=== PATIENT | male | born 1940 | race Caucasian/White ===

== ENCOUNTER 2020-11-22 17:41 | Inpatient (IN) | payer BC, MEDICARE ==
[~2020-11-22] VITALS: Ht 188 cm; Wt 96.4 kg
[2020-11-22] MEDS ORDERED: normal saline 1000ML IV soln IV ONE (17:55)
--- NOTE | 2020-11-22 18:17 | NUR ---
Pt. reports falling 5 days prior, striking back, no head strike, no LOC.
[2020-11-22 18:53] LABS: BASOPHILS % (AUTO) 0.5 % (0-1); EOSINOPHILS % (AUTO) 0.3 % (0-6); HEMATOCRIT 32.4 % (42.0-52.0); LYMPHOCYTES # (AUTO) 0.7 X10'3 (1.1-4.8); LYMPHOCYTES % (AUTO) 7.8 % (21-51); MEAN CORPUSCULAR HEMOGLOBIN 23.2 PG (27.0-31.0); MEAN CORPUSCULAR HGB CONC 30.9 g/dL (33.0-36.5); MEAN CORPUSCULAR VOLUME 75.2 FL (78-98); MEAN PLATELET VOLUME 7.1 FL (7.4-10.4); MONOCYTES # (AUTO) 0.8 X10'3 (0-0.9); MONOCYTES % (AUTO) 8.5 % (2-12); NEUTROPHILS # (AUTO) 7.5 X10'3 (1.8-7.7); NEUTROPHILS % (AUTO) 82.9 % (42-75); PLATELET COUNT 413 X10'3 (140-440); RED BLOOD COUNT 4.31 X10'6 (4.70-6.10); RED CELL DISTRIBUTION WIDTH 19.8 % (11.5-14.5); WHITE BLOOD COUNT 9.1 X10'3 (4.5-11.0)
[2020-11-22 19:07] LABS: ALANINE AMINOTRANSFERASE 15 U/L (12-78); ALBUMIN 3.7 G/DL (3.4-5.0); ALBUMIN/GLOBULIN RATIO 0.9 (1.1-1.5); ALKALINE PHOSPHATASE 89 IU/L (46-116); ANION GAP 11 (8-16); ASPARTATE AMINO TRANSFERASE 18 U/L (10-37); BILIRUBIN,TOTAL 0.7 MG/DL (0.1-1.0); BLOOD UREA NITROGEN 24 MG/DL (7-18); BUN/CREATININE RATIO 14.4 (5.4-32.0); CALCIUM 9.3 MG/DL (8.5-10.1); CHLORIDE 105 MMOL/L (99-107); CREATININE 1.67 MG/DL (0.60-1.10); GLUCOSE 155 MG/DL (70-104); POTASSIUM 4.1 MMOL/L (3.5-5.1); SODIUM 140 MMOL/L (135-145); TOTAL CARBON DIOXIDE 24.3 MMOL/L (24-32); TOTAL PROTEIN 7.7 G/DL (6.4-8.2); eGFR 40 ML/MIN
[2020-11-22 19:09] LABS: MAGNESIUM 1.8 MG/DL (1.5-2.4)
[2020-11-22] MEDS ORDERED: temazepam 15mg capsule PO PRN (21:00)
[2020-11-22 21:10] LABS: CLARITY,URINE CLOUDY (Clear); COLOR,URINE YELLOW (Yellow); UA COLLECTION TYPE URINAL
[2020-11-22 21:11] LABS: GLUCOSE, URINE NEGATIVE (Neg); KETONES,URINE 15 mg/dl (Neg); OCCULT BLOOD,URINE SMALL (Neg); PROTEIN,URINE 100 mg/dl (Neg)
[2020-11-22 21:12] LABS: LEUKOCYTE ESTERASE ,URINE TRACE (Neg); NITRITES, URINE POSITIVE (Neg); UROBILINOGEN,URINE 0.2 E.U/dL (0.2-1.0)
[2020-11-22 21:20] LABS: WBC,URINE 50-100 /HPF (0-4)
[2020-11-22 21:21] LABS: BACTERIA,URINE 3+ /HPF (Neg); MUCUS STRANDS FEW /LPF (Neg); SQUAMOUS EPITHELIAL CELL,UR FEW /LPF (FEW)
[2020-11-22] MEDS ORDERED: magnesium Cl slow-release 64mg tablet PO PRN (22:05)
[2020-11-22] MEDS ORDERED: mag hydrox/Alum hydrox/simeth 30ml oral suspension PO PRN (22:05)
[2020-11-22] MEDS ORDERED: ondansetron/PF 4mg/2ml inj IV PRN (22:05)
[2020-11-22] MEDS ORDERED: potassium Cl 20 mEq SR tablet PO PRN ×2 (22:05)
[2020-11-22] MEDS ORDERED: acetaminophen 325mg tablet PO PRN ×2 (22:05)
[2020-11-22] MEDS ORDERED: magnesium 2GM in 50ml NS 50 ML IV PRN (22:05)
[2020-11-22] MEDS ORDERED: magnesium 4gm in 100ml NS 100 ML IV PRN (22:05)
[2020-11-22] MEDS ORDERED: magnesium hydroxide 30ml (MOM) UD suspension PO PRN (22:05)
[2020-11-22] MEDS ORDERED: potassium Cl 40MEQ/1/2NS 520ml 520 ML IV PRN ×2 (22:05)
[2020-11-22] MEDS ORDERED: MESSAGE TO PHARMACY PO ONE (22:10)
[2020-11-22] MEDS ORDERED: dextrose 50%-water 50ml dispensing syringe IV PRN ×2 (22:10)
[2020-11-22] MEDS ORDERED: dextrose ORAL solution 15 GM/59 ML bottle PO PRN ×2 (22:10)
[2020-11-22] MEDS ORDERED: glucagon, human recombinant 1mg kit SUBCUT PRN (22:10)
[2020-11-22 22:18] LABS: PLATELET ESTIMATE NORMAL
[2020-11-22 22:20] LABS: ANISOCYTOSIS 2+; HYPOCHROMASIA 1+; MICROCYTOSIS 1+
[2020-11-22 23:02] LABS: HEMOGLOBIN A1C 6.1 % (4.5-6.2)
--- NOTE | 2020-11-22 23:20 | NUR ---
PT HAD AN EPISODE OF EMESIS COMPOSED OF PARTIALLY COMPOSED DINNER AND A SODA HIS HAD BROUGHT HIM. HE REPORTS FEELING WELL NOW. AIRWAY PATENT. HE IS ALERT AND ORIENTEDX4. PT WAS CLEANED UP, CHANGED INTO A NEW GOWN, AND LINENS HAVE BEEN CHANGED. PT WAS STARTED ON ABS AND MAINTENANCE FLUIDS. BED LOW TO GROUND AND LOCKED INTO POSITION.
[2020-11-22] MEDS: CefTRIAXone 2gm/D5W 50ml BAG 50 ML IV SCH (23:25)
[2020-11-22] MEDS: normal saline 1000ml 1,000 ML IV SCH (23:27)
[2020-11-22] MEDS ORDERED: LISI40TA13 PO (23:39)
[2020-11-22] MEDS ORDERED: GLIM4TAB7 PO (23:39)
[2020-11-22] MEDS ORDERED: BRIN8DRO RIGHTEYE (23:39)
[2020-11-22] MEDS ORDERED: METO-395 PO (23:39)
[2020-11-22] MEDS ORDERED: LAN0.125T PO (23:39)
[2020-11-22] MEDS ORDERED: PIOG30TA71 PO (23:41)
[2020-11-22] MEDS ORDERED: RIVA20TA PO (23:41)
[2020-11-22] MEDS ORDERED: ATOR10TA70 PO (23:43)
[2020-11-22] MEDS ORDERED: METF-950 PO (23:43)
[2020-11-22] MEDS ORDERED: BIMA2.5D EACHEYE (23:45)
[2020-11-22] MEDS ORDERED: ZOLP5TAB2 PO (23:45)
[2020-11-23 07:18] LABS: ALANINE AMINOTRANSFERASE 22 U/L (12-78); ALBUMIN 3.5 G/DL (3.4-5.0); ALBUMIN/GLOBULIN RATIO 0.9 (1.1-1.5); ALKALINE PHOSPHATASE 86 IU/L (46-116); ANION GAP 11 (8-16); ASPARTATE AMINO TRANSFERASE 21 U/L (10-37); BILIRUBIN,TOTAL 0.6 MG/DL (0.1-1.0); BLOOD UREA NITROGEN 20 MG/DL (7-18); BUN/CREATININE RATIO 16.5 (5.4-32.0); CALCIUM 9.3 MG/DL (8.5-10.1); CHLORIDE 105 MMOL/L (99-107); CREATININE 1.21 MG/DL (0.60-1.10); GLUCOSE 180 MG/DL (70-104); MAGNESIUM 1.9 MG/DL (1.5-2.4); POTASSIUM 3.7 MMOL/L (3.5-5.1); SODIUM 140 MMOL/L (135-145); TOTAL CARBON DIOXIDE 24.1 MMOL/L (24-32); TOTAL PROTEIN 7.2 G/DL (6.4-8.2); eGFR 58 ML/MIN
[2020-11-23] MEDS: K and/or MAG REPLACEMENT MC SCH ×2 (07:49→22:53)
[2020-11-23] MEDS: CefTRIAXone 2gm/D5W 50ml BAG 50 ML IV SCH (07:58)
[2020-11-23] MEDS: normal saline 1000ml 1,000 ML IV SCH ×2 (07:58→17:23)
[2020-11-23] MEDS ORDERED: heparin, porcine 5000 units/ml vial SQ SCH (08:00)
[2020-11-23] MEDS ORDERED: metFORMIN 500mg tablet PO SCH (08:30)
[2020-11-23] MEDS ORDERED: pioglitazone 15mg tablet PO SCH (08:32)
--- NOTE | 2020-11-23 08:55 | NUR ---
PAGED DR GARCIA REGARDING PT ORAL HYPERGYCEMIC AGENT ASKED IF HE WANT US TO ADMIN TO PT PT IS ALREADY ON HUMOLOG AND LANTUS , PER MD HOLD THE ORAL HYPERGYLCEMIC MEDS.WILL FOLLOW THE ORDERS.
[2020-11-23] MEDS: metoprolol succinate 25mg (24-HOUR) SR. Tablet PO SCH (09:03)
[2020-11-23] MEDS: atorvastatin 10mg tablet PO SCH (09:03)
[2020-11-23] MEDS: digoxin 125mcg (0.125mg) tablet PO SCH (09:03)
[2020-11-23] MEDS: lisinopril 20mg tablet PO SCH (09:03)
[2020-11-23 10:46] LABS: BASOPHILS % (AUTO) 0.5 % (0-1); EOSINOPHILS % (AUTO) 0.3 % (0-6); HEMATOCRIT 32.6 % (42.0-52.0); HEMOGLOBIN 10.1 g/dl (14.0-17.9); LYMPHOCYTES # (AUTO) 0.8 X10'3 (1.1-4.8); LYMPHOCYTES % (AUTO) 7.5 % (21-51); MEAN CORPUSCULAR VOLUME 74.1 FL (78-98); MONOCYTES # (AUTO) 0.7 X10'3 (0-0.9); MONOCYTES % (AUTO) 6.7 % (2-12); NEUTROPHILS # (AUTO) 8.6 X10'3 (1.8-7.7); PLATELET COUNT 416 X10'3 (140-440); RED BLOOD COUNT 4.39 X10'6 (4.70-6.10); RED CELL DISTRIBUTION WIDTH 20.2 % (11.5-14.5); WHITE BLOOD COUNT 10.2 X10'3 (4.5-11.0)
[2020-11-23 11:49] LABS: ANISOCYTOSIS 3+; MICROCYTOSIS 1+; PLATELET ESTIMATE NORMAL
[2020-11-23 11:50] LABS: ELLIPTOCYTES FEW; TARGET CELLS FEW
[2020-11-23] MEDS: BRIMONID TART RIGHTEYE SCH ×2 (13:00→22:52)
[2020-11-23] MEDS: BRINZOLAMIDE RIGHTEYE SCH ×2 (13:00→22:52)
--- NOTE | 2020-11-23 13:15 | NUR ---
talked to family and gave update
--- NOTE | 2020-11-23 14:00 | NUR ---
pt refused to take insulin for blood sugar .
--- NOTE | 2020-11-23 15:10 | NUR ---
dr finley at bedside.
[2020-11-23] MEDS: rivaroxaban 20mg tablet PO SCH (17:22)
[2020-11-23] MEDS: latanoprost 0.005% 2.5ml ophthalmic drops EACHEYE SCH (21:30)
[2020-11-23 21:35] VITALS: BP 164/94
--- NOTE | 2020-11-23 21:35 | NUR ---
PATIENT ADMITTED TO [facility] FROM ER FOR WEAKNESS, FALLS AT HOME, DM TYPE 2 AND HYPERLIPIDEMIA. PLACED COMFORTABLE IN BED. VITAL SIGNS TAKEN AND RECORDED.
[2020-11-23] MEDS: lactobacillus rhamnosus 10,000 MMU CELLS/CAPSULE PO SCH (22:51)
[2020-11-23] MEDS: insulin glargine (Lantus) pen - multi-dose SQ SCH (22:52)
[2020-11-24 04:00] VITALS: BP 146/93
[2020-11-24] MEDS: normal saline 1000ml 1,000 ML IV SCH (04:05)
--- NOTE | 2020-11-24 06:15 | NUR ---
Received RPT from JOSE EDUARDO Golden
--- NOTE | 2020-11-24 06:29 | NUR ---
Problems reprioritized. Patient report given, questions answered & plan of care reviewed with TENISHA WHITT.
[2020-11-24] MEDS: K and/or MAG REPLACEMENT MC SCH ×2 (08:00→20:00)
[2020-11-24] MEDS: BRINZOLAMIDE RIGHTEYE SCH ×2 (08:00→13:00)
[2020-11-24] MEDS: BRIMONID TART RIGHTEYE SCH ×2 (08:00→13:00)
[2020-11-24] MEDS: lactobacillus rhamnosus 10,000 MMU CELLS/CAPSULE PO SCH ×2 (08:33→23:28)
[2020-11-24] MEDS: atorvastatin 10mg tablet PO SCH (08:34)
[2020-11-24] MEDS: metoprolol succinate 25mg (24-HOUR) SR. Tablet PO SCH (08:35)
[2020-11-24] MEDS: lisinopril 20mg tablet PO SCH (08:36)
[2020-11-24] MEDS: latanoprost 0.005% 2.5ml ophthalmic drops EACHEYE SCH (08:39)
[2020-11-24] MEDS: CefTRIAXone 2gm/D5W 50ml BAG 50 ML IV SCH (09:01)
[2020-11-24 09:38] LABS: BASOPHILS # (AUTO) 0.1 X10'3 (0-0.2); BASOPHILS % (AUTO) 0.5 % (0-1); EOSINOPHILS # (AUTO) 0.1 X10'3 (0-0.9); EOSINOPHILS % (AUTO) 0.4 % (0-6); HEMATOCRIT 33.3 % (42.0-52.0); HEMOGLOBIN 10.5 g/dl (14.0-17.9); LYMPHOCYTES # (AUTO) 1.4 X10'3 (1.1-4.8); LYMPHOCYTES % (AUTO) 11.4 % (21-51); MEAN CORPUSCULAR HEMOGLOBIN 23.3 PG (27.0-31.0); MEAN CORPUSCULAR HGB CONC 31.5 g/dL (33.0-36.5); MEAN CORPUSCULAR VOLUME 73.9 FL (78-98); MONOCYTES # (AUTO) 1.1 X10'3 (0-0.9); MONOCYTES % (AUTO) 8.6 % (2-12); NEUTROPHILS # (AUTO) 9.8 X10'3 (1.8-7.7); NEUTROPHILS % (AUTO) 79.1 % (42-75); PLATELET COUNT 441 X10'3 (140-440); RED CELL DISTRIBUTION WIDTH 19.7 % (11.5-14.5); WHITE BLOOD COUNT 12.3 X10'3 (4.5-11.0)
[2020-11-24 09:45] LABS: ALANINE AMINOTRANSFERASE 25 U/L (12-78); ALBUMIN 3.5 G/DL (3.4-5.0); ALBUMIN/GLOBULIN RATIO 0.9 (1.1-1.5); ALKALINE PHOSPHATASE 89 IU/L (46-116); ANION GAP 9 (8-16); ASPARTATE AMINO TRANSFERASE 19 U/L (10-37); BILIRUBIN,TOTAL 0.6 MG/DL (0.1-1.0); BLOOD UREA NITROGEN 16 MG/DL (7-18); BUN/CREATININE RATIO 13.3 (5.4-32.0); CHLORIDE 107 MMOL/L (99-107); GLUCOSE 138 MG/DL (70-104); MAGNESIUM 1.8 MG/DL (1.5-2.4); POTASSIUM 3.7 MMOL/L (3.5-5.1); SODIUM 141 MMOL/L (135-145); TOTAL CARBON DIOXIDE 25.4 MMOL/L (24-32); TOTAL PROTEIN 7.5 G/DL (6.4-8.2); eGFR 58 ML/MIN
[2020-11-24] MEDS: digoxin 125mcg (0.125mg) tablet PO SCH (09:46)
--- NOTE | 2020-11-24 09:50 | NUR ---
Digoxin not available from Pharmacy until this time. Administered medication and continue to monitor pt.
[2020-11-24 11:00] VITALS: BP 140/85
--- NOTE | 2020-11-24 11:54 | NUR ---
Gave RPT to JOSE EDUARDO Walker
--- NOTE | 2020-11-24 13:10 | NUR ---
While pt getting out of recliner to return to bed, stumbled forward striking his head in end corner of bed. Pt reports he did not hit the floor. No injury noted, no discomfort reported. Pt hypertensive on VS 173/103 HR 114. Student was in room and assisted pt back to bed and notified Nursing. Bed alarm on but there was no Tabs placed by PT.
--- NOTE | 2020-11-24 13:59 | NUR ---
BP recheck after pt settled for a while 150/98 HR 107-123 afib hx. continues to deny pain.
[2020-11-24] MEDS: rivaroxaban 20mg tablet PO SCH (17:43)
--- NOTE | 2020-11-24 18:17 | NUR ---
Problems reprioritized. Patient report given, questions answered & plan of care reviewed with JOSE EDUARDO Oshea.
[2020-11-24] MEDS: insulin glargine (Lantus) pen - multi-dose SQ SCH (21:00)
[2020-11-24] MEDS: zolpidem 5mg tablet PO PRN ×2 (23:28→23:31)
--- NOTE | 2020-11-25 06:04 | NUR ---
End of shift note. patient refused accucheck and vital signs for 1999. Pt. was a bit irritable. Patient is incontinent of urine. This nurse offered to change his bottoms. Pt. declined, and stated he would wait for his daughter to bring his clothes.
[2020-11-25 06:20] LABS: BASOPHILS % (AUTO) 0.4 % (0-1); EOSINOPHILS # (AUTO) 0.1 X10'3 (0-0.9); EOSINOPHILS % (AUTO) 1.2 % (0-6); HEMATOCRIT 33.9 % (42.0-52.0); HEMOGLOBIN 10.3 g/dl (14.0-17.9); LYMPHOCYTES # (AUTO) 1.4 X10'3 (1.1-4.8); LYMPHOCYTES % (AUTO) 14.1 % (21-51); MEAN CORPUSCULAR HEMOGLOBIN 22.9 PG (27.0-31.0); MEAN CORPUSCULAR HGB CONC 30.5 g/dL (33.0-36.5); MEAN CORPUSCULAR VOLUME 75.2 FL (78-98); MEAN PLATELET VOLUME 7.1 FL (7.4-10.4); MONOCYTES % (AUTO) 9.8 % (2-12); NEUTROPHILS # (AUTO) 7.3 X10'3 (1.8-7.7); NEUTROPHILS % (AUTO) 74.5 % (42-75); PLATELET COUNT 383 X10'3 (140-440); RED BLOOD COUNT 4.51 X10'6 (4.70-6.10); RED CELL DISTRIBUTION WIDTH 19.9 % (11.5-14.5); WHITE BLOOD COUNT 9.8 X10'3 (4.5-11.0)
[2020-11-25 06:44] LABS: ALANINE AMINOTRANSFERASE 17 U/L (12-78); ALBUMIN 3.4 G/DL (3.4-5.0); ALBUMIN/GLOBULIN RATIO 0.9 (1.1-1.5); ALKALINE PHOSPHATASE 86 IU/L (46-116); ANION GAP 13 (8-16); ASPARTATE AMINO TRANSFERASE 13 U/L (10-37); BILIRUBIN,TOTAL 0.5 MG/DL (0.1-1.0); BLOOD UREA NITROGEN 15 MG/DL (7-18); BUN/CREATININE RATIO 12.6 (5.4-32.0); CALCIUM 9.3 MG/DL (8.5-10.1); CHLORIDE 108 MMOL/L (99-107); CREATININE 1.19 MG/DL (0.60-1.10); GLUCOSE 114 MG/DL (70-104); MAGNESIUM 1.9 MG/DL (1.5-2.4); POTASSIUM 3.5 MMOL/L (3.5-5.1); SODIUM 144 MMOL/L (135-145); TOTAL CARBON DIOXIDE 23.3 MMOL/L (24-32); TOTAL PROTEIN 7.2 G/DL (6.4-8.2); eGFR 59 ML/MIN
[2020-11-25 08:00] VITALS: BP 159/114
[2020-11-25] MEDS: BRIMONID TART RIGHTEYE SCH ×3 (08:00→21:00)
[2020-11-25] MEDS: BRINZOLAMIDE RIGHTEYE SCH ×3 (08:00→21:00)
[2020-11-25] MEDS: atorvastatin 10mg tablet PO SCH (08:00)
[2020-11-25] MEDS: K and/or MAG REPLACEMENT MC SCH ×2 (08:29→20:00)
[2020-11-25] MEDS: CefTRIAXone 2gm/D5W 50ml BAG 50 ML IV SCH (09:28)
[2020-11-25] MEDS: metoprolol succinate 25mg (24-HOUR) SR. Tablet PO SCH (09:28)
[2020-11-25] MEDS: lactobacillus rhamnosus 10,000 MMU CELLS/CAPSULE PO SCH ×2 (09:28→21:40)
[2020-11-25] MEDS: digoxin 125mcg (0.125mg) tablet PO SCH (09:29)
[2020-11-25] MEDS: lisinopril 20mg tablet PO SCH (09:29)
--- NOTE | 2020-11-25 11:41 | NUR ---
DM consult: Pt with T2DM, well controlled with A1c 6.1%. DM education not warranted at this time. Noted per physical assessment pt gargles after coughing or swallowing. Recommend BSS with ST to monitor need for texture modification and appropriateness for PO diet. Pt currently on a CHO controlled diet with mostly 0% PO intake throughout LOS. Recommend diet advancement to regular in view of current A1c and geriatric age IF pt able to tolerate PO intake. Will continue to follow closely and make recommendations as appropriate pending BSS. Addendum: 11/25/20 at [address] Amended: Links added.
[2020-11-25 12:00] VITALS: BP 152/101
[2020-11-25] MEDS: rivaroxaban 20mg tablet PO SCH (17:27)
[2020-11-25] MEDS: insulin glargine (Lantus) pen - multi-dose SQ SCH (21:00)
[2020-11-25] MEDS: latanoprost 0.005% 2.5ml ophthalmic drops EACHEYE SCH (21:29)
[2020-11-26 06:20] LABS: BASOPHILS % (AUTO) 0.5 % (0-1); EOSINOPHILS # (AUTO) 0.1 X10'3 (0-0.9); EOSINOPHILS % (AUTO) 1.4 % (0-6); HEMATOCRIT 32.8 % (42.0-52.0); HEMOGLOBIN 10.1 g/dl (14.0-17.9); LYMPHOCYTES # (AUTO) 1.1 X10'3 (1.1-4.8); MEAN CORPUSCULAR HGB CONC 30.8 g/dL (33.0-36.5); MEAN CORPUSCULAR VOLUME 74.7 FL (78-98); MEAN PLATELET VOLUME 7.1 FL (7.4-10.4); MONOCYTES # (AUTO) 0.9 X10'3 (0-0.9); MONOCYTES % (AUTO) 10.5 % (2-12); NEUTROPHILS # (AUTO) 6.4 X10'3 (1.8-7.7); NEUTROPHILS % (AUTO) 74.6 % (42-75); PLATELET COUNT 383 X10'3 (140-440); RED BLOOD COUNT 4.39 X10'6 (4.70-6.10); RED CELL DISTRIBUTION WIDTH 19.4 % (11.5-14.5); WHITE BLOOD COUNT 8.6 X10'3 (4.5-11.0)
[2020-11-26 06:40] LABS: ALANINE AMINOTRANSFERASE 22 U/L (12-78); ALBUMIN 3.3 G/DL (3.4-5.0); ALBUMIN/GLOBULIN RATIO 0.8 (1.1-1.5); ALKALINE PHOSPHATASE 84 IU/L (46-116); ANION GAP 11 (8-16); ASPARTATE AMINO TRANSFERASE 19 U/L (10-37); BILIRUBIN,TOTAL 0.5 MG/DL (0.1-1.0); BLOOD UREA NITROGEN 15 MG/DL (7-18); BUN/CREATININE RATIO 12.7 (5.4-32.0); CHLORIDE 105 MMOL/L (99-107); CREATININE 1.18 MG/DL (0.60-1.10); GLUCOSE 105 MG/DL (70-104); MAGNESIUM 1.9 MG/DL (1.5-2.4); POTASSIUM 3.4 MMOL/L (3.5-5.1); SODIUM 141 MMOL/L (135-145); TOTAL CARBON DIOXIDE 25.3 MMOL/L (24-32); TOTAL PROTEIN 7.2 G/DL (6.4-8.2); eGFR 59 ML/MIN
[2020-11-26 07:00] VITALS: BP 151/96
[2020-11-26] MEDS: lactobacillus rhamnosus 10,000 MMU CELLS/CAPSULE PO SCH ×2 (07:33→19:56)
[2020-11-26] MEDS: metoprolol succinate 25mg (24-HOUR) SR. Tablet PO SCH (07:33)
[2020-11-26] MEDS: digoxin 125mcg (0.125mg) tablet PO SCH (07:33)
[2020-11-26] MEDS: lisinopril 20mg tablet PO SCH (07:33)
[2020-11-26] MEDS: atorvastatin 10mg tablet PO SCH (07:33)
[2020-11-26] MEDS: BRIMONID TART RIGHTEYE SCH ×3 (07:34→21:00)
[2020-11-26] MEDS: BRINZOLAMIDE RIGHTEYE SCH ×3 (07:34→21:00)
[2020-11-26] MEDS: CefTRIAXone 2gm/D5W 50ml BAG 50 ML IV SCH (07:34)
[2020-11-26] MEDS: K and/or MAG REPLACEMENT MC SCH ×2 (07:35→20:00)
--- NOTE | 2020-11-26 15:22 | NUR ---
Initial: Pt admit for UTI with recent falls and generalized weakness. S/p BSS with ST recs regular texture modification as pt swallowing well with food and liquids and reports he has been coughing up some phlegm but is not related to swallowing difficulty per ST note. Pt initially with 0% PO intake however up to 50% PO intake at two most recent meals. Noted pt states he's not hungry per monotypist. TC to RN with recommendation for diet liberalization to regular with MD approval in view of A1c 6.1%, poor PO intake, and geriatric age. Diet has been advanced, pending first meal since advancement. LBM 11/21, with PRN bowel care available though not documented to be given. D/w dietary to send prune juice with next meal to assist with bowel regularity. Will continue to follow and monitor need for further nutrition intervention pending additional trends in PO intake with diet advancement. Recommendations: 1) Continue regular diet 2) Monitor need for ONS 3) Routine bowel care 4) Scaled weight this admit; weekly scaled weights thereafter Addendum: 11/26/20 at [address] Amended: Links added.
[2020-11-26] MEDS: rivaroxaban 20mg tablet PO SCH (17:39)
--- NOTE | 2020-11-26 18:00 | NUR ---
Patient in room [facility] I have received report from Shubham and had the opportunity to ask questions and assume patient care.
[2020-11-26] MEDS: zolpidem 5mg tablet PO PRN (19:56)
[2020-11-26 20:00] VITALS: BP 148/90
[2020-11-26] MEDS: latanoprost 0.005% 2.5ml ophthalmic drops EACHEYE SCH (21:00)
[2020-11-26] MEDS: insulin glargine (Lantus) pen - multi-dose SQ SCH (21:49)
[2020-11-26] MEDS: insulin Lispro (HumaLOG) vial - multi-dose SQ SCH (21:50)
[2020-11-27] VITALS: BP 149/86
--- NOTE | 2020-11-27 06:22 | NUR ---
Problems reprioritized. Patient report given, questions answered & plan of care reviewed with JOSE EDUARDO Goldsmith .
--- NOTE | 2020-11-27 06:30 | NUR ---
Patient in room [facility]. I have received report from Tameka WHITT and had the opportunity to ask questions and assume patient care.
[2020-11-27 06:32] LABS: BASOPHILS % (AUTO) 0.6 % (0-1); EOSINOPHILS # (AUTO) 0.2 X10'3 (0-0.9); EOSINOPHILS % (AUTO) 1.9 % (0-6); HEMATOCRIT 31.1 % (42.0-52.0); HEMOGLOBIN 9.8 g/dl (14.0-17.9); LYMPHOCYTES # (AUTO) 1.2 X10'3 (1.1-4.8); MEAN CORPUSCULAR HEMOGLOBIN 23.3 PG (27.0-31.0); MEAN CORPUSCULAR HGB CONC 31.3 g/dL (33.0-36.5); MEAN CORPUSCULAR VOLUME 74.2 FL (78-98); MEAN PLATELET VOLUME 7.2 FL (7.4-10.4); MONOCYTES # (AUTO) 0.9 X10'3 (0-0.9); MONOCYTES % (AUTO) 11.2 % (2-12); NEUTROPHILS # (AUTO) 5.9 X10'3 (1.8-7.7); NEUTROPHILS % (AUTO) 72.3 % (42-75); PLATELET COUNT 359 X10'3 (140-440); RED CELL DISTRIBUTION WIDTH 19.4 % (11.5-14.5); WHITE BLOOD COUNT 8.2 X10'3 (4.5-11.0)
[2020-11-27 06:57] LABS: ALANINE AMINOTRANSFERASE 20 U/L (12-78); ALBUMIN 3.1 G/DL (3.4-5.0); ALBUMIN/GLOBULIN RATIO 0.8 (1.1-1.5); ALKALINE PHOSPHATASE 72 IU/L (46-116); ANION GAP 12 (8-16); ASPARTATE AMINO TRANSFERASE 14 U/L (10-37); BILIRUBIN,TOTAL 0.4 MG/DL (0.1-1.0); BLOOD UREA NITROGEN 15 MG/DL (7-18); BUN/CREATININE RATIO 13.5 (5.4-32.0); CALCIUM 8.9 MG/DL (8.5-10.1); CHLORIDE 105 MMOL/L (99-107); CREATININE 1.11 MG/DL (0.60-1.10); GLUCOSE 152 MG/DL (70-104); POTASSIUM 3.4 MMOL/L (3.5-5.1); SODIUM 142 MMOL/L (135-145); TOTAL CARBON DIOXIDE 24.8 MMOL/L (24-32); TOTAL PROTEIN 6.9 G/DL (6.4-8.2); eGFR 64 ML/MIN
[2020-11-27 07:00] VITALS: BP 170/112
[2020-11-27 07:12] LABS: ANISOCYTOSIS 2+; MICROCYTOSIS 1+; PLATELET ESTIMATE NORMAL
[2020-11-27 07:13] LABS: POIKILOCYTOSIS FEW
[2020-11-27] MEDS: BRINZOLAMIDE RIGHTEYE SCH ×3 (08:00→21:00)
[2020-11-27] MEDS: K and/or MAG REPLACEMENT MC SCH ×2 (08:00→20:00)
[2020-11-27] MEDS: BRIMONID TART RIGHTEYE SCH ×3 (08:00→21:00)
[2020-11-27] MEDS: lactobacillus rhamnosus 10,000 MMU CELLS/CAPSULE PO SCH ×2 (08:56→21:43)
[2020-11-27] MEDS: atorvastatin 10mg tablet PO SCH (08:57)
[2020-11-27] MEDS: digoxin 125mcg (0.125mg) tablet PO SCH (08:59)
[2020-11-27] MEDS: lisinopril 20mg tablet PO SCH (09:02)
[2020-11-27] MEDS: metoprolol succinate 25mg (24-HOUR) SR. Tablet PO SCH (09:02)
[2020-11-27] MEDS: CefTRIAXone 2gm/D5W 50ml BAG 50 ML IV SCH (09:30)
[2020-11-27] MEDS: insulin Lispro (HumaLOG) vial - multi-dose SQ SCH ×2 (09:37→14:03)
[2020-11-27 12:00] VITALS: BP 127/73
[2020-11-27] MEDS ORDERED: metoprolol tartrate 12.5mg (1/2 tablet) PO ONE (13:10)
--- NOTE | 2020-11-27 14:20 | NUR ---
PAGER ID: [phone] MESSAGE: Agus Surg [id number] re: [id number] El Walsh Patient has 3.3 K+ did you want me to add the replacement protocol.
[2020-11-27] MEDS ORDERED: magnesium 4gm in 100ml NS 100 ML IV PRN (15:45)
[2020-11-27] MEDS ORDERED: magnesium 2GM in 50ml NS 50 ML IV PRN (15:45)
[2020-11-27] MEDS ORDERED: magnesium Cl slow-release 64mg tablet PO PRN (15:45)
[2020-11-27] MEDS ORDERED: potassium Cl 40MEQ/1/2NS 520ml 520 ML IV PRN (15:45)
[2020-11-27] MEDS ORDERED: potassium Cl 20 mEq SR tablet PO PRN (15:45)
[2020-11-27] MEDS: rivaroxaban 20mg tablet PO SCH (16:06)
[2020-11-27] MEDS: potassium Cl 20 mEq SR tablet PO PRN ×2 (16:06→21:44)
--- NOTE | 2020-11-27 18:30 | NUR ---
Patient in room [facility]. I have received report from JOSE EDUARDO Goldsmith and had the opportunity to ask questions and assume patient care.
[2020-11-27] MEDS ORDERED: K and/or MAG REPLACEMENT MC SCH (20:00)
[2020-11-27] MEDS: insulin glargine (Lantus) pen - multi-dose SQ SCH (21:00)
[2020-11-27] MEDS: latanoprost 0.005% 2.5ml ophthalmic drops EACHEYE SCH (21:00)
--- NOTE | 2020-11-28 06:53 | NUR ---
Patient in room [facility]. I have received report from JOSE EDUARDO English and had the opportunity to ask questions and assume patient care.
[2020-11-28 07:00] VITALS: BP 156/109
[2020-11-28 07:05] LABS: BASOPHILS # (AUTO) 0.1 X10'3 (0-0.2); BASOPHILS % (AUTO) 0.6 % (0-1); EOSINOPHILS # (AUTO) 0.2 X10'3 (0-0.9); EOSINOPHILS % (AUTO) 1.8 % (0-6); HEMATOCRIT 31.3 % (42.0-52.0); HEMOGLOBIN 9.9 g/dl (14.0-17.9); LYMPHOCYTES # (AUTO) 1.5 X10'3 (1.1-4.8); LYMPHOCYTES % (AUTO) 16.7 % (21-51); MEAN CORPUSCULAR HEMOGLOBIN 23.1 PG (27.0-31.0); MEAN CORPUSCULAR HGB CONC 31.8 g/dL (33.0-36.5); MEAN CORPUSCULAR VOLUME 72.7 FL (78-98); MEAN PLATELET VOLUME 6.9 FL (7.4-10.4); MONOCYTES # (AUTO) 0.9 X10'3 (0-0.9); MONOCYTES % (AUTO) 10.2 % (2-12); NEUTROPHILS # (AUTO) 6.2 X10'3 (1.8-7.7); NEUTROPHILS % (AUTO) 70.7 % (42-75); PLATELET COUNT 358 X10'3 (140-440); RED BLOOD COUNT 4.31 X10'6 (4.70-6.10); RED CELL DISTRIBUTION WIDTH 19.8 % (11.5-14.5); WHITE BLOOD COUNT 8.7 X10'3 (4.5-11.0)
[2020-11-28 07:14] LABS: % IRON SATURATION 6 % (11-46); IRON 17 UG/DL (53-167); TOTAL IRON BINDING CAPACITY 303 UG/DL (259-388)
[2020-11-28 07:32] LABS: ALANINE AMINOTRANSFERASE 20 U/L (12-78); ALBUMIN 3.3 G/DL (3.4-5.0); ALBUMIN/GLOBULIN RATIO 0.8 (1.1-1.5); ALKALINE PHOSPHATASE 76 IU/L (46-116); ANION GAP 12 (8-16); ASPARTATE AMINO TRANSFERASE 14 U/L (10-37); BILIRUBIN,TOTAL 0.6 MG/DL (0.1-1.0); BLOOD UREA NITROGEN 20 MG/DL (7-18); BUN/CREATININE RATIO 18.2 (5.4-32.0); CHLORIDE 106 MMOL/L (99-107); GLUCOSE 111 MG/DL (70-104); MAGNESIUM 1.9 MG/DL (1.5-2.4); POTASSIUM 3.7 MMOL/L (3.5-5.1); SODIUM 142 MMOL/L (135-145); TOTAL CARBON DIOXIDE 24.5 MMOL/L (24-32); TOTAL PROTEIN 7.2 G/DL (6.4-8.2); eGFR 64 ML/MIN
[2020-11-28] MEDS: lisinopril 20mg tablet PO SCH (07:46)
[2020-11-28] MEDS: lactobacillus rhamnosus 10,000 MMU CELLS/CAPSULE PO SCH ×2 (07:46→20:53)
[2020-11-28] MEDS: digoxin 125mcg (0.125mg) tablet PO SCH (07:48)
[2020-11-28] MEDS: metoprolol succinate 25mg (24-HOUR) SR. Tablet PO SCH (07:48)
[2020-11-28] MEDS: atorvastatin 10mg tablet PO SCH (07:48)
[2020-11-28] MEDS: CefTRIAXone 2gm/D5W 50ml BAG 50 ML IV SCH (07:49)
[2020-11-28] MEDS: BRIMONID TART RIGHTEYE SCH ×3 (07:50→20:53)
[2020-11-28] MEDS: BRINZOLAMIDE RIGHTEYE SCH ×3 (07:50→20:53)
[2020-11-28] MEDS: K and/or MAG REPLACEMENT MC SCH ×2 (08:00→19:05)
[2020-11-28 08:10] LABS: ANISOCYTOSIS 2+; BURR CELLS FEW; ELLIPTOCYTES FEW; MICROCYTOSIS 1+; PLATELET ESTIMATE NORMAL; POLYCHROMASIA FEW; TEAR DROP CELLS FEW
[2020-11-28] MEDS: insulin Lispro (HumaLOG) vial - multi-dose SQ SCH ×2 (09:22→13:21)
[2020-11-28 12:00] VITALS: BP 92/51
[2020-11-28] MEDS: rivaroxaban 20mg tablet PO SCH (17:43)
--- NOTE | 2020-11-28 18:29 | NUR ---
Problems reprioritized. Patient report given, questions answered & plan of care reviewed with JOSE EDUARDO English.
--- NOTE | 2020-11-28 18:30 | NUR ---
Patient in room [facility]. I have received report from JOSE EDUARDO Lake and had the opportunity to ask questions and assume patient care.
[2020-11-28 20:00] VITALS: BP 135/81
[2020-11-28] MEDS: latanoprost 0.005% 2.5ml ophthalmic drops EACHEYE SCH (21:00)
[2020-11-28] MEDS: insulin glargine (Lantus) pen - multi-dose SQ SCH (21:00)
--- NOTE | 2020-11-28 23:00 | NUR ---
Orders received from Dr Ramirez to requalify patient on DM protocol before administering insulin. Pt on CC diet and has maintained blood sugars in normal range. Will continue to monitor.
[2020-11-29] VITALS: BP 105/69
--- NOTE | 2020-11-29 06:22 | NUR ---
Problems reprioritized. Patient report given, questions answered & plan of care reviewed with Lainey. Addendum: 11/29/20 at 0624 by Tameka Tanner RN Report given to JOSE EDUARDO Pedraza.
[2020-11-29 07:41] LABS: BASOPHILS % (AUTO) 0.6 % (0-1); EOSINOPHILS # (AUTO) 0.2 X10'3 (0-0.9); EOSINOPHILS % (AUTO) 2.1 % (0-6); HEMATOCRIT 32.6 % (42.0-52.0); HEMOGLOBIN 10.1 g/dl (14.0-17.9); LYMPHOCYTES # (AUTO) 1.4 X10'3 (1.1-4.8); LYMPHOCYTES % (AUTO) 18.4 % (21-51); MEAN CORPUSCULAR HEMOGLOBIN 22.9 PG (27.0-31.0); MEAN PLATELET VOLUME 7.4 FL (7.4-10.4); MONOCYTES # (AUTO) 0.9 X10'3 (0-0.9); MONOCYTES % (AUTO) 10.9 % (2-12); NEUTROPHILS # (AUTO) 5.3 X10'3 (1.8-7.7); PLATELET COUNT 365 X10'3 (140-440); RED BLOOD COUNT 4.41 X10'6 (4.70-6.10); RED CELL DISTRIBUTION WIDTH 19.6 % (11.5-14.5); WHITE BLOOD COUNT 7.8 X10'3 (4.5-11.0)
[2020-11-29 08:00] VITALS: BP 187/110
[2020-11-29] MEDS: BRIMONID TART RIGHTEYE SCH ×3 (08:00→20:00)
[2020-11-29] MEDS: BRINZOLAMIDE RIGHTEYE SCH ×3 (08:00→20:00)
[2020-11-29] MEDS: K and/or MAG REPLACEMENT MC SCH ×2 (08:00→19:02)
[2020-11-29 08:07] LABS: ALANINE AMINOTRANSFERASE 23 U/L (12-78); ALBUMIN 3.1 G/DL (3.4-5.0); ALBUMIN/GLOBULIN RATIO 0.8 (1.1-1.5); ALKALINE PHOSPHATASE 72 IU/L (46-116); ANION GAP 12 (8-16); ASPARTATE AMINO TRANSFERASE 14 U/L (10-37); BILIRUBIN,TOTAL 0.5 MG/DL (0.1-1.0); BLOOD UREA NITROGEN 16 MG/DL (7-18); BUN/CREATININE RATIO 14.7 (5.4-32.0); CALCIUM 9.1 MG/DL (8.5-10.1); CHLORIDE 104 MMOL/L (99-107); CREATININE 1.09 MG/DL (0.60-1.10); GLUCOSE 102 MG/DL (70-104); MAGNESIUM 2.1 MG/DL (1.5-2.4); POTASSIUM 3.5 MMOL/L (3.5-5.1); SODIUM 140 MMOL/L (135-145); TOTAL CARBON DIOXIDE 24.4 MMOL/L (24-32); eGFR 65 ML/MIN
[2020-11-29] MEDS: CefTRIAXone 2gm/D5W 50ml BAG 50 ML IV SCH (09:33)
[2020-11-29] MEDS: lactobacillus rhamnosus 10,000 MMU CELLS/CAPSULE PO SCH ×2 (09:34→19:58)
[2020-11-29] MEDS: digoxin 125mcg (0.125mg) tablet PO SCH (09:35)
[2020-11-29] MEDS: atorvastatin 10mg tablet PO SCH (09:35)
[2020-11-29] MEDS: lisinopril 20mg tablet PO SCH (09:36)
[2020-11-29] MEDS: metoprolol succinate 25mg (24-HOUR) SR. Tablet PO SCH (09:36)
[2020-11-29 11:00] VITALS: BP 107/54
[2020-11-29] MEDS: iron sucrose complex injection 200 MG in normal saline 100ml IV soln 100 ML IV SCH (11:20)
[2020-11-29] MEDS: insulin Lispro (HumaLOG) vial - multi-dose SQ SCH (12:09)
--- NOTE | 2020-11-29 16:28 | NUR ---
Student documentation: I have reviewed all interventions, assessments performed and documented by Danyel MORENO of [facility]. Student Medication Administration: For all medication-pass' in the time frame of -715, all medication were reviewed, dispensed, administered and documented per hospital policy by Danyel MORENO of [facility].
[2020-11-29] MEDS: rivaroxaban 20mg tablet PO SCH (16:45)
--- NOTE | 2020-11-29 17:54 | NUR ---
Lunch BS accu check not covered with 3 units Humulin. Addendum: 11/29/20 at 1829 by Keila Casper RN Wrong information reported in error.
[2020-11-29 18:00] VITALS: BP 105/54
[2020-11-29 20:00] VITALS: BP 105/54
[2020-11-29] MEDS: latanoprost 0.005% 2.5ml ophthalmic drops EACHEYE SCH (20:00)
[2020-11-29] MEDS: zolpidem 5mg tablet PO PRN (21:34)
[2020-11-29] MEDS: insulin glargine (Lantus) pen - multi-dose SQ SCH (21:40)
[2020-11-30] VITALS: BP 118/71
[2020-11-30 06:26] LABS: BASOPHILS % (AUTO) 0.5 % (0-1); EOSINOPHILS # (AUTO) 0.1 X10'3 (0-0.9); EOSINOPHILS % (AUTO) 1.5 % (0-6); HEMATOCRIT 31.7 % (42.0-52.0); LYMPHOCYTES # (AUTO) 1.3 X10'3 (1.1-4.8); LYMPHOCYTES % (AUTO) 17.3 % (21-51); MEAN CORPUSCULAR HGB CONC 31.7 g/dL (33.0-36.5); MEAN CORPUSCULAR VOLUME 72.5 FL (78-98); MEAN PLATELET VOLUME 7.1 FL (7.4-10.4); MONOCYTES # (AUTO) 0.7 X10'3 (0-0.9); MONOCYTES % (AUTO) 9.4 % (2-12); NEUTROPHILS # (AUTO) 5.5 X10'3 (1.8-7.7); NEUTROPHILS % (AUTO) 71.3 % (42-75); PLATELET COUNT 366 X10'3 (140-440); RED BLOOD COUNT 4.37 X10'6 (4.70-6.10); RED CELL DISTRIBUTION WIDTH 19.6 % (11.5-14.5); WHITE BLOOD COUNT 7.6 X10'3 (4.5-11.0)
--- NOTE | 2020-11-30 06:28 | NUR ---
Received report for pt in [facility] from Tameka WHITT. Had the opportunity to ask questions and assumed pt care.
--- NOTE | 2020-11-30 06:51 | NUR ---
Problems reprioritized. Patient report given, questions answered & plan of care reviewed with JOSE EDUARDO Pedraza.
[2020-11-30 06:58] LABS: ALANINE AMINOTRANSFERASE 25 U/L (12-78); ALBUMIN 3.2 G/DL (3.4-5.0); ALBUMIN/GLOBULIN RATIO 0.8 (1.1-1.5); ALKALINE PHOSPHATASE 80 IU/L (46-116); ANION GAP 10 (8-16); ASPARTATE AMINO TRANSFERASE 16 U/L (10-37); BILIRUBIN,TOTAL 0.5 MG/DL (0.1-1.0); BLOOD UREA NITROGEN 20 MG/DL (7-18); BUN/CREATININE RATIO 17.2 (5.4-32.0); CALCIUM 9.3 MG/DL (8.5-10.1); CHLORIDE 105 MMOL/L (99-107); CREATININE 1.16 MG/DL (0.60-1.10); GLUCOSE 114 MG/DL (70-104); POTASSIUM 3.7 MMOL/L (3.5-5.1); SODIUM 141 MMOL/L (135-145); TOTAL CARBON DIOXIDE 25.9 MMOL/L (24-32); eGFR 61 ML/MIN
[2020-11-30 08:00] VITALS: BP 155/103
[2020-11-30] MEDS: digoxin 125mcg (0.125mg) tablet PO SCH (08:00)
[2020-11-30] MEDS: metoprolol succinate 25mg (24-HOUR) SR. Tablet PO SCH (08:00)
[2020-11-30] MEDS: K and/or MAG REPLACEMENT MC SCH ×2 (08:00→19:12)
[2020-11-30] MEDS: lactobacillus rhamnosus 10,000 MMU CELLS/CAPSULE PO SCH ×2 (08:03→19:30)
[2020-11-30] MEDS: lisinopril 20mg tablet PO SCH (08:06)
[2020-11-30] MEDS: atorvastatin 10mg tablet PO SCH (08:07)
[2020-11-30] MEDS: BRIMONID TART RIGHTEYE SCH ×3 (08:07→21:35)
[2020-11-30] MEDS: BRINZOLAMIDE RIGHTEYE SCH ×3 (08:07→21:35)
[2020-11-30] MEDS: CefTRIAXone 2gm/D5W 50ml BAG 50 ML IV SCH (08:27)
[2020-11-30] MEDS: iron sucrose complex injection 200 MG in normal saline 100ml IV soln 100 ML IV SCH (09:08)
--- NOTE | 2020-11-30 09:17 | NUR ---
Reassessment: Pt PO intake improved, avg 71% x 10 meals on CCHO diet though could benefit from diet liberalization to Regular diet given A1C 6.1 and geriatric age. BG has mostly been controlled this admit. LBM 11/29 receiving routine lactulose. Will continue to monitor PO trends and make recommendations as appropriate. Recommendations: 1) Liberalize to Regular diet if MD agreeable 2) Monitor need for ONS 3) Routine bowel care 4) Scaled weight this admit; weekly scaled weights thereafter Addendum: 11/30/20 at [address] Amended: Links added.
[2020-11-30 11:00] VITALS: BP 112/65
[2020-11-30] MEDS: insulin Lispro (HumaLOG) vial - multi-dose SQ SCH ×3 (11:19→19:35)
[2020-11-30] MEDS: rivaroxaban 20mg tablet PO SCH (17:20)
--- NOTE | 2020-11-30 18:30 | NUR ---
Patient in room [facility]. I have received report from JOSE EDUARDO Pedraza and had the opportunity to ask questions and assume patient care.
[2020-11-30 20:00] VITALS: BP 127/80
[2020-11-30] MEDS: latanoprost 0.005% 2.5ml ophthalmic drops EACHEYE SCH (21:35)
[2020-11-30] MEDS: zolpidem 5mg tablet PO PRN (21:36)
[2020-11-30] MEDS: insulin glargine (Lantus) pen - multi-dose SQ SCH (21:40)
[2020-12-01] VITALS: BP 140/76
--- NOTE | 2020-12-01 06:20 | NUR ---
Problems reprioritized. Patient report given, questions answered & plan of care reviewed with JOSE EDUARDO Schmitt and JOSE EDUARDO Mathias Student.
[2020-12-01 06:36] LABS: BASOPHILS # (AUTO) 0.1 X10'3 (0-0.2); BASOPHILS % (AUTO) 0.7 % (0-1); EOSINOPHILS # (AUTO) 0.2 X10'3 (0-0.9); HEMATOCRIT 30.3 % (42.0-52.0); HEMOGLOBIN 9.7 g/dl (14.0-17.9); LYMPHOCYTES # (AUTO) 1.3 X10'3 (1.1-4.8); LYMPHOCYTES % (AUTO) 16.8 % (21-51); MEAN CORPUSCULAR HEMOGLOBIN 23.4 PG (27.0-31.0); MEAN CORPUSCULAR HGB CONC 31.9 g/dL (33.0-36.5); MEAN CORPUSCULAR VOLUME 73.5 FL (78-98); MEAN PLATELET VOLUME 7.3 FL (7.4-10.4); MONOCYTES # (AUTO) 0.8 X10'3 (0-0.9); MONOCYTES % (AUTO) 10.3 % (2-12); NEUTROPHILS # (AUTO) 5.5 X10'3 (1.8-7.7); NEUTROPHILS % (AUTO) 70.2 % (42-75); PLATELET COUNT 365 X10'3 (140-440); RED BLOOD COUNT 4.13 X10'6 (4.70-6.10); RED CELL DISTRIBUTION WIDTH 20.1 % (11.5-14.5); WHITE BLOOD COUNT 7.8 X10'3 (4.5-11.0)
[2020-12-01 07:13] LABS: ALANINE AMINOTRANSFERASE 23 U/L (12-78); ALBUMIN 3.1 G/DL (3.4-5.0); ALBUMIN/GLOBULIN RATIO 0.9 (1.1-1.5); ALKALINE PHOSPHATASE 73 IU/L (46-116); ANION GAP 10 (8-16); ASPARTATE AMINO TRANSFERASE 14 U/L (10-37); BILIRUBIN,TOTAL 0.5 MG/DL (0.1-1.0); BLOOD UREA NITROGEN 20 MG/DL (7-18); BUN/CREATININE RATIO 14.9 (5.4-32.0); CALCIUM 9.2 MG/DL (8.5-10.1); CHLORIDE 107 MMOL/L (99-107); CREATININE 1.34 MG/DL (0.60-1.10); GLUCOSE 103 MG/DL (70-104); POTASSIUM 3.7 MMOL/L (3.5-5.1); SODIUM 142 MMOL/L (135-145); TOTAL CARBON DIOXIDE 25.3 MMOL/L (24-32); TOTAL PROTEIN 6.6 G/DL (6.4-8.2); eGFR 51 ML/MIN
[2020-12-01] MEDS: metoprolol succinate 25mg (24-HOUR) SR. Tablet PO SCH (07:33)
[2020-12-01] MEDS: BRINZOLAMIDE RIGHTEYE SCH ×3 (07:33→20:46)
[2020-12-01] MEDS: BRIMONID TART RIGHTEYE SCH ×3 (07:33→20:46)
[2020-12-01] MEDS: lactobacillus rhamnosus 10,000 MMU CELLS/CAPSULE PO SCH ×2 (07:34→20:45)
[2020-12-01] MEDS: lisinopril 20mg tablet PO SCH (07:34)
--- NOTE | 2020-12-01 07:34 | NUR ---
PAGER ID: [phone] MESSAGE: [id number] El Kiser: does patient need IV iron..would PO work? it keeps blowing his IVs? thanks, saloni [phone]
[2020-12-01] MEDS: atorvastatin 10mg tablet PO SCH (07:35)
[2020-12-01] MEDS: digoxin 125mcg (0.125mg) tablet PO SCH (07:36)
[2020-12-01] MEDS: K and/or MAG REPLACEMENT MC SCH ×2 (07:41→19:45)
[2020-12-01 08:00] VITALS: BP 138/92
[2020-12-01] MEDS: iron sucrose complex injection 200 MG in normal saline 100ml IV soln 100 ML IV SCH (08:00)
[2020-12-01] MEDS ORDERED: ondansetron 4mg rapidly disintigrating tab PO PRN (08:50)
[2020-12-01] MEDS: insulin Lispro (HumaLOG) vial - multi-dose SQ SCH ×2 (09:03→13:58)
[2020-12-01 12:00] VITALS: BP 111/74
--- NOTE | 2020-12-01 12:38 | NUR ---
Patient in room [facility]. I have received report from SN Shubham and had the opportunity to ask questions and assume patient care. Addendum: 12/01/20 at 1454 by Radha Springer - STUDENT [facility]
[2020-12-01 16:45] VITALS: BP 144/91
[2020-12-01] MEDS: ascorbic acid 500mg tablet PO SCH (16:53)
[2020-12-01] MEDS: rivaroxaban 20mg tablet PO SCH (16:53)
--- NOTE | 2020-12-01 16:59 | NUR ---
At 1650 patient reported pain to the dorsal aspect of his upper right calf. Notified JOSE EDUARDO Fonseca, who will assess the patient and page the MD.
--- NOTE | 2020-12-01 17:16 | NUR ---
PAGER ID: [phone] MESSAGE: [id number] El Kiser: patient c/o new increased pain in his calf area behind the knee. thanks! saloni [phone]
--- NOTE | 2020-12-01 18:17 | NUR ---
Student documentation: I have reviewed and agree with all interventions, assessments performed and documented by SN KORTNEY. Student Medication Administration: For this medication-pass time frame, all medication were reviewed, dispensed, administered and documented per hospital policy by SN KORTNEY.
--- NOTE | 2020-12-01 18:18 | NUR ---
Problems reprioritized. Patient report given, questions answered & plan of care reviewed with JOSE EDUARDO JARA.
--- NOTE | 2020-12-01 18:18 | NUR ---
Problems reprioritized. Patient report given, questions answered & plan of care reviewed with JOSE EDUARDO Fonseca.
--- NOTE | 2020-12-01 18:19 | NUR ---
Student documentation: I have reviewed and agree with all interventions, assessments performed and documented by Lanny, nursing teacher.
--- NOTE | 2020-12-01 18:19 | NUR ---
Student Medication Administration: For this medication-pass time frame, all medication were reviewed, dispensed, administered and documented per hospital policy by Lanny nursing administrator.
--- NOTE | 2020-12-01 18:20 | NUR ---
Patient in room [facility]. I have received report from JOSE EDUARDO Schmitt and had the opportunity to ask questions and assume patient care.
[2020-12-01 20:00] VITALS: BP 119/62
[2020-12-01] MEDS: FERROUS SULFATE 142 MG TABLET.ER (45mg elemental) PO SCH (20:45)
[2020-12-01] MEDS: latanoprost 0.005% 2.5ml ophthalmic drops EACHEYE SCH (20:47)
[2020-12-01] MEDS: zolpidem 5mg tablet PO PRN (20:48)
[2020-12-01] MEDS: insulin glargine (Lantus) pen - multi-dose SQ SCH (21:03)
--- NOTE | 2020-12-01 21:30 | NUR ---
I witnessed and co signed Lantus for patient. The units witnessed, and given were 12 units of lantus. Primary nurse did a typo and 300 units were showing as the amount of units given. This in not correct.
[2020-12-02] VITALS: BP 116/63
[2020-12-02 06:17] LABS: BASOPHILS # (AUTO) 0.1 X10'3 (0-0.2); BASOPHILS % (AUTO) 0.8 % (0-1); EOSINOPHILS # (AUTO) 0.2 X10'3 (0-0.9); EOSINOPHILS % (AUTO) 2.1 % (0-6); HEMATOCRIT 30.4 % (42.0-52.0); HEMOGLOBIN 9.6 g/dl (14.0-17.9); LYMPHOCYTES # (AUTO) 1.3 X10'3 (1.1-4.8); MEAN CORPUSCULAR HEMOGLOBIN 23.4 PG (27.0-31.0); MEAN CORPUSCULAR HGB CONC 31.6 g/dL (33.0-36.5); MEAN CORPUSCULAR VOLUME 74.1 FL (78-98); MEAN PLATELET VOLUME 7.3 FL (7.4-10.4); MONOCYTES # (AUTO) 0.8 X10'3 (0-0.9); MONOCYTES % (AUTO) 10.6 % (2-12); NEUTROPHILS # (AUTO) 5.3 X10'3 (1.8-7.7); NEUTROPHILS % (AUTO) 69.5 % (42-75); PLATELET COUNT 353 X10'3 (140-440); RED CELL DISTRIBUTION WIDTH 20.1 % (11.5-14.5); WHITE BLOOD COUNT 7.6 X10'3 (4.5-11.0)
--- NOTE | 2020-12-02 06:34 | NUR ---
Problems reprioritized. Patient report given, questions answered & plan of care reviewed with JOSE EDUARDO Montanez .
[2020-12-02 06:41] LABS: ANISOCYTOSIS 3+; MICROCYTOSIS 1+; PLATELET ESTIMATE NORMAL; POLYCHROMASIA 1+
[2020-12-02 06:58] LABS: ALANINE AMINOTRANSFERASE 23 U/L (12-78); ALBUMIN/GLOBULIN RATIO 0.8 (1.1-1.5); ALKALINE PHOSPHATASE 74 IU/L (46-116); ANION GAP 9 (8-16); ASPARTATE AMINO TRANSFERASE 15 U/L (10-37); BILIRUBIN,TOTAL 0.5 MG/DL (0.1-1.0); BLOOD UREA NITROGEN 18 MG/DL (7-18); BUN/CREATININE RATIO 14.3 (5.4-32.0); CALCIUM 9.1 MG/DL (8.5-10.1); CHLORIDE 106 MMOL/L (99-107); CREATININE 1.26 MG/DL (0.60-1.10); GLUCOSE 108 MG/DL (70-104); POTASSIUM 3.8 MMOL/L (3.5-5.1); SODIUM 141 MMOL/L (135-145); TOTAL PROTEIN 6.6 G/DL (6.4-8.2); eGFR 55 ML/MIN
[2020-12-02 07:00] VITALS: BP 136/107
--- NOTE | 2020-12-02 07:16 | NUR ---
Patient in room [facility]. I have received report from JOSE EDUARDO JARA and had the opportunity to ask questions and assume patient care.
[2020-12-02 08:00] VITALS: BP 136/107
[2020-12-02] MEDS: K and/or MAG REPLACEMENT MC SCH ×2 (08:00→20:00)
[2020-12-02] MEDS: ascorbic acid 500mg tablet PO SCH ×2 (08:21→19:06)
[2020-12-02] MEDS: BRINZOLAMIDE RIGHTEYE SCH ×3 (08:21→20:28)
[2020-12-02] MEDS: BRIMONID TART RIGHTEYE SCH ×3 (08:21→20:28)
[2020-12-02] MEDS: digoxin 125mcg (0.125mg) tablet PO SCH (08:22)
[2020-12-02] MEDS: FERROUS SULFATE 142 MG TABLET.ER (45mg elemental) PO SCH ×2 (08:23→20:27)
[2020-12-02] MEDS: atorvastatin 10mg tablet PO SCH (08:23)
[2020-12-02] MEDS: lisinopril 20mg tablet PO SCH (08:23)
[2020-12-02] MEDS: lactobacillus rhamnosus 10,000 MMU CELLS/CAPSULE PO SCH ×2 (08:23→20:27)
[2020-12-02] MEDS: metoprolol succinate 25mg (24-HOUR) SR. Tablet PO SCH (08:25)
[2020-12-02] MEDS: insulin Lispro (HumaLOG) vial - multi-dose SQ SCH ×2 (08:42→19:17)
[2020-12-02 11:00] VITALS: BP 123/78
--- NOTE | 2020-12-02 18:50 | NUR ---
Problems reprioritized. Patient report given, questions answered & plan of care reviewed with JOSE EDUARDO WHITE.
--- NOTE | 2020-12-02 19:03 | NUR ---
Patient in room [facility]. I have received report from Lisseth WHITT and had the opportunity to ask questions and assume patient care.
[2020-12-02] MEDS: rivaroxaban 20mg tablet PO SCH (19:06)
[2020-12-02 20:00] VITALS: BP 131/88
[2020-12-02] MEDS: zolpidem 5mg tablet PO PRN (20:27)
[2020-12-02] MEDS: latanoprost 0.005% 2.5ml ophthalmic drops EACHEYE SCH (20:30)
[2020-12-02] MEDS: insulin glargine (Lantus) pen - multi-dose SQ SCH (22:04)
[2020-12-03] VITALS: BP 135/75
--- NOTE | 2020-12-03 06:31 | NUR ---
Problems reprioritized. Patient report given, questions answered & plan of care reviewed with Rosy WHITT.
--- NOTE | 2020-12-03 06:39 | NUR ---
Patient in room [facility]. I have received report from CHRISTOPHER WHITT and had the opportunity to ask questions and assume patient care.
[2020-12-03] MEDS: lactobacillus rhamnosus 10,000 MMU CELLS/CAPSULE PO SCH (07:13)
[2020-12-03] MEDS: FERROUS SULFATE 142 MG TABLET.ER (45mg elemental) PO SCH (07:13)
[2020-12-03] MEDS: atorvastatin 10mg tablet PO SCH (07:13)
[2020-12-03] MEDS: lisinopril 20mg tablet PO SCH (07:16)
[2020-12-03] MEDS: metoprolol succinate 25mg (24-HOUR) SR. Tablet PO SCH (07:17)
[2020-12-03] MEDS: digoxin 125mcg (0.125mg) tablet PO SCH (07:17)
[2020-12-03] MEDS: BRIMONID TART RIGHTEYE SCH ×2 (07:18→13:04)
[2020-12-03] MEDS: BRINZOLAMIDE RIGHTEYE SCH ×2 (07:18→13:04)
[2020-12-03 08:00] VITALS: BP 153/90
[2020-12-03] MEDS: K and/or MAG REPLACEMENT MC SCH (08:00)
[2020-12-03] MEDS: ascorbic acid 500mg tablet PO SCH (09:01)
[2020-12-03] MEDS: insulin Lispro (HumaLOG) vial - multi-dose SQ SCH ×2 (09:07→14:07)
--- NOTE | 2020-12-03 09:15 | NUR ---
Reassessment: Pt continues eating well with average 75-100% PO intake on CHO controlled diet. Per physician note pt with iron deficiency anemia, pt receiving routine Iron with Vitamin C to increase iron absorption. LBM 12/02, with PRN bowel care available. No nutrition intervention implemented at this time. Will continue to follow. Recommendations: 1) Liberalize to regular diet if physician agreeable given A1c 6.1% with BG levels well controlled throughout LOS and geriatric age 2) Continue routine iron replacement with Vitamin C given iron deficiency anemia 3) Bowel care PRN 4) Scaled weight this admit; weekly scaled weights thereafter Addendum: 12/03/20 at [address] Amended: Links added.
[2020-12-03 11:00] VITALS: BP 120/68
[2020-12-03] MEDS ORDERED: METF-950 PO (12:53)
[2020-12-03] MEDS ORDERED: CHOL-4 PO (12:53)
[2020-12-03] MEDS ORDERED: CYAN1TAB41 PO (12:53)
[2020-12-03] MEDS ORDERED: METO-395 PO (12:54)
--- NOTE | 2020-12-03 18:57 | NUR ---
Patient discharged at 1530. pt belongings sent with pt. iv removed, tip intact, no complications. pt educated on post discharge instructions. pt discharged to home in stable condition
== END 2020-12-03 16:12 | disposition home or self-care (01) | DRG 690 ==
LOC: ER 17:42 → ED HOLD 22:06 → SUR 3N 11-23 21:36
PROVIDERS: ADMIT Internal Medicine; ATTEND Family Medicine
DX: N39.0 Urinary tract infection, site not specified (principal); E11.22 Type 2 diabetes mellitus with diabetic chronic kidney disease; E78.00 Pure hypercholesterolemia, unspecified; E78.5 Hyperlipidemia, unspecified; E86.0 Dehydration; F03.90 Unspecified dementia, unspecified severity, without behavioral disturbance, psychotic disturbance, mood disturbance, and anxiety; S50.01XA Contusion of right elbow, initial encounter; X58.XXXA Exposure to other specified factors, initial encounter; I12.9 Hypertensive chronic kidney disease with stage 1 through stage 4 chronic kidney disease, or unspecified chronic kidney disease; D50.9 Iron deficiency anemia, unspecified; I48.91 Unspecified atrial fibrillation; R00.0 Tachycardia, unspecified; N18.30 Chronic kidney disease, stage 3 unspecified; R29.6 Repeated falls; R62.7 Adult failure to thrive; Z87.891 Personal history of nicotine dependence; Z91.81 History of falling; Z68.27 Body mass index [BMI] 27.0-27.9, adult; Y93.89 Activity, other specified; Y92.89 Other specified places as the place of occurrence of the external cause; Y99.8 Other external cause status
CPT/HCPCS: 36415; 70450; 71045; 80053; 80162; 81001; 82948; 83036; 83540; 83550; 83605; 83735; 84443; 84484; 85008; 85025; 87040; 87081; 87088; 92508; 92616; 93005; 93971; 97110; 97116; 97161; 97530; 99285; G0378; J0696; J1644; J1756; J1815; J2405; J7030